=== PATIENT | female | born 1960 | race Caucasian/White ===

== ENCOUNTER 2020-03-25 14:07 | Inpatient (IN) ==
[2020-03-25] MEDS ORDERED: 0.9 % Sodium Chloride 1,000 ML IVC ONE (16:44)
[2020-03-25] MEDS ORDERED: *HR* HYDROcodone/Acet 5/325 mg TABLET PO PRN (18:31)
[2020-03-25] MEDS ORDERED: MOM Conc 10 ML UD.LIQ PO PRN (18:31)
[2020-03-25] MEDS ORDERED: Acetaminophen 325 MG TABLET PO PRN (18:31)
[2020-03-25] MEDS ORDERED: Naloxone 0.4 MG/ML INJ IVP PRN (18:31)
[2020-03-25] MEDS ORDERED: Mag Hydrox/Al Hydrox/Simeth 30 ML UDC PO PRN (18:31)
[2020-03-25] MEDS ORDERED: Ondansetron 4 MG/2 ML VIAL IVP PRN (18:31)
[2020-03-25] MEDS: Ampicillin/Sulbactam 3,000 MG in 0.9 % Sodium Chloride Mini Bag 100 ML IVPB SCH ×2 (19:04→23:17)
[2020-03-26 04:46] LABS: Basophils % 0.3 %; Eosinophils # 0.1 K/mcL (0.0-0.6); Eosinophils % 1.1 %; Immature Granulocytes % 0.3 % (0-4); Lymphocytes # 1.7 K/mcL (0.6-4.6); Lymphocytes % 19.3 %; Mean Corpuscular HGB Conc 32.4 g/dL (31.6-35.5); Mean Corpuscular Hemoglobin 30.2 pg (28.0-33.3); Mean Corpuscular Volume 93.2 fL (83.0-100.0); Mean Platelet Volume 10.1 fL (9.4-12.4); Monocytes # 0.8 K/mcL (0.0-1.3); Neutrophils # 6.2 K/mcL (1.6-8.9); Platelet Count 265 K/mcL (140-400); Red Blood Count 3.97 M/mcL (3.82-4.97); Red Cell Distribution Width 11.9 % (11.5-14.5); White Blood Count 8.9 K/mcL (4.3-11.1)
[2020-03-26 04:55] LABS: BUN/Creatinine Ratio 14 (6-26); Blood Urea Nitrogen 7 mg/dL (8-23); Calcium 8.8 mg/dL (8.6-10.3); Carbon Dioxide 23 mEq/L (23-29); Chloride 105 mEq/L (98-107); Glucose 104 mg/dL (70-105); Osmolality,Calculated 282 (280-300); Potassium 3.7 mEq/L (3.5-5.1); Sodium 137 mEq/L (136-145); eGFR For African Americans > 60 (> 60); eGFR For Non-African Americans > 60 (> 60)
[2020-03-26] MEDS: Ampicillin/Sulbactam 3,000 MG in 0.9 % Sodium Chloride Mini Bag 100 ML IVPB SCH ×3 (05:10→18:06)
[2020-03-27] MEDS: Ampicillin/Sulbactam 3,000 MG in 0.9 % Sodium Chloride Mini Bag 100 ML IVPB SCH ×2 (00:02→05:42)
[2020-03-27 01:36] LABS: Basophils # 0.1 K/mcL (0.0-0.2); Basophils % 0.8 %; Eosinophils # 0.3 K/mcL (0.0-0.6); Eosinophils % 3.7 %; Hematocrit 36.1 % (35.3-44.9); Hemoglobin 11.5 g/dL (11.5-15.4); Immature Granulocytes % 0.1 % (0-4); Lymphocytes # 2.3 K/mcL (0.6-4.6); Lymphocytes % 32.3 %; Mean Corpuscular HGB Conc 31.9 g/dL (31.6-35.5); Mean Corpuscular Hemoglobin 30.1 pg (28.0-33.3); Mean Corpuscular Volume 94.5 fL (83.0-100.0); Monocytes # 0.7 K/mcL (0.0-1.3); Monocytes % 9.3 %; Neutrophils # 3.8 K/mcL (1.6-8.9); Platelet Count 288 K/mcL (140-400); Red Blood Count 3.82 M/mcL (3.82-4.97); Segmented Neutrophils % 53.8 %; White Blood Count 7.1 K/mcL (4.3-11.1)
[2020-03-27 01:47] LABS: BUN/Creatinine Ratio 24 (6-26); Blood Urea Nitrogen 14 mg/dL (8-23); Calcium 8.7 mg/dL (8.6-10.3); Carbon Dioxide 24 mEq/L (23-29); Chloride 106 mEq/L (98-107); Glucose 116 mg/dL (70-105); Osmolality,Calculated 291 (280-300); Potassium 3.6 mEq/L (3.5-5.1); Sodium 140 mEq/L (136-145); eGFR For African Americans > 60 (> 60); eGFR For Non-African Americans > 60 (> 60)
[2020-03-27 11:43] VITALS: BP 135/83
== END 2020-03-27 16:41 | disposition home or self-care (01) | DRG 145 ==
LOC: 3ANU 14:07 → EMEROOARM 14:07 → 3ANU 18:20
PROVIDERS: ADMIT Otolaryngology; ATTEND Otolaryngology